=== PATIENT | male | born 1975 ===

== ENCOUNTER 2021-04-06 19:21 | Emergency (ER) | payer BC ==
[2021-04-06 19:28] VITALS: BP 138/80; PULSE 67; RESP 18; TEMP 98.4
--- NOTE | 2021-04-06 19:28 | ED ---
General Adult HPI - General Stated complaint: Covid Test for border Time Seen by Provider: 04/06/21 19:25 Source: patient, RN notes reviewed Mode of arrival: ambulatory Limitations: no limitations - History of Present Illness Initial comments: This a 46-year-old male presents emergency Department with chief complaint of covid 19 testing. Patient states that needs a COVID-19 test to [place]. Patient is asymptomatic. Denies fever chills cough congestion shortness of breath that nausea vomiting diarrhea constipation no other complaints. Review of Systems ROS Statement: Those systems with pertinent positive or pertinent negative responses have been documented in the HPI. ROS Other: All systems not noted in ROS Statement are negative. General Exam General appearance: alert, in no apparent distress Head exam: Present: atraumatic, normocephalic, normal inspection Neck exam: Present: normal inspection. Absent: tenderness, meningismus, lymphadenopathy Respiratory exam: Present: normal lung sounds bilaterally. Absent: respiratory distress, wheezes, rales, rhonchi, stridor Cardiovascular Exam: Present: regular rate, normal rhythm, normal heart sounds. Absent: systolic murmur, diastolic murmur, rubs, gallop, clicks Medical Decision Making - Medical Decision Making covid testing negative. Disposition Clinical Impression: Encounter for laboratory testing for COVID-19 virus Disposition: HOME SELF-CARE Condition: Stable Additional Instructions: Please return to the Emergency Department if symptoms worsen or any other concerns. Is patient prescribed a controlled substance at d/c from ED?: No Referrals: None,Stated [Primary Care Provider] - 1-2 days Time of Disposition: 19:28
== END 2021-04-06 20:14 | disposition home or self-care (01) ==
LOC: EC 19:21
DX: Z11.52 Encounter for screening for COVID-19 (principal); Z20.822 Contact with and (suspected) exposure to COVID-19
CPT/HCPCS: 87635; 99282